=== PATIENT | male | born 1990 | race American Indian/Alaskan Native ===

== ENCOUNTER 2018-11-04 14:39 | Emergency (ER) | payer MEDICAID, OTHER ==
--- NOTE | 2018-11-04 15:26 | ED PDOC ---
Arrival/HPI - General Time Seen by Provider: 11/04/18 14:41 Historian: Patient - History of Present Illness Narrative History of Present Illness (Text): 28 year old male with no significant past medical history presents to the emergency department complaining of right wrist pain s/p injury one hour prior to arrival. Patient was singing and dancing in the shower when he slipped and fell on to his right wrist. Denies any head strike or LOC. Currently complaining of pain to the right elbow, right forearm, right wrist, and right hand. Patient has not taken any medication for pain. During the fall he sustained a small abrasion to the right dorsal fifth digit. No active bleeding. Denies numbness, weakness, paresthesias, pain elsewhere, headache, dizziness, neck pain or stiffness, back pain, abdominal pain, nausea, vomiting, vision changes, or any other associated symptoms. Past Medical History - Tetanus Immunization Tetanus Immunization: Unknown - Past Medical History Past Medical History: No Previous - Psychiatric Hx Anxiety: No Hx Depression: No - Past Surgical History Past Surgical History: No Previous - Suicidal Assessment Feels Threatened In Home Enviroment: No Family/Social History Smoking Status: Current Some Days Smoker Allergies/Home Meds Allergies/Adverse Reactions: Allergies grape Allergy (Verified 11/04/18 15:26) RASH ibuprofen [From Motrin] Allergy (Verified 11/04/18 15:26) RASH Penicillins Allergy (Verified 11/04/18 15:26) RASH Physical Exam Vital Signs Reviewed: Yes Temperature: Afebrile Blood Pressure: Normal Pulse: Regular Respiratory Rate: Normal Appearance: Positive for: Well-Appearing, Non-Toxic, Comfortable Pain Distress: None Mental Status: Positive for: Alert and Oriented X 3 Medical Decision Making ED Course and Treatment: 17:44 Xrays negative for acute fracture or dislocation. Pt placed in right thumb spica braced and educated on the possibility of occult fracture. Advised orthopedic and PMD followup. - RAD Interpretation Narrative RAD Interpretations (Text): 11/04/18 17:38 Right Hand XR: FINDINGS: BONES: Normal. No fracture. JOINTS: Normal. No osteoarthritic changes. SOFT TISSUES: Normal. OTHER FINDINGS: None. IMPRESSION: Normal right hand radiographs. Right Forearm XR: FINDINGS: BONES: No fracture or destructive lesion. JOINT SPACES: Unremarkable. OTHER FINDINGS: None. IMPRESSION: Unremarkable radiographs of the right forearm. Right Elbow XR: FINDINGS: BONES: Normal. No fracture. JOINTS: Normal. No osteoarthritis. SOFT TISSUES: Focal soft tissue swelling adjacent to JOINT EFFUSION: None. OTHER FINDINGS: None. IMPRESSION: Unremarkable radiographs of the right elbow. 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 Disposition/Present on Arrival - Present on Arrival Any Indicators Present on Arrival: No History of DVT/PE: No History of Uncontrolled Diabetes: No Urinary Catheter: No History Surgical Site Infection Following: None - Disposition Have Diagnosis and Disposition been Completed?: Yes Diagnosis: Right wrist sprain Disposition: HOME/ ROUTINE Disposition Time: 17:30 Patient Plan: Discharge Condition: IMPROVED Discharge Instructions (ExitCare): Wrist Sprain (DC), Wrist Fracture (DC) Additional Instructions: Tylenol as needed for pain Ice injured arm hourly 15 minutes at a time Keep injured arm elevated Keep brace on and dry until orthopedic followup Return to ER with any new/worsening symptoms Referrals: [facility] [place] - Follow up with primary Orth[facility] at [Outside] - Follow up with primary Emeli Montaño MD [Staff Provider] - Follow up with primary Ruthann Diaz MD [Medical Doctor] - Follow up with primary Forms: [facility] (Malay), WORK NOTE
[2018-11-04 15:31] VITALS: RESP 18; TEMP 98.3; O2SAT 100
[2018-11-04 15:38] VITALS: BMI 22.2
--- NOTE | 2018-11-04 17:39 | RAD ---
PROCEDURE: Right Hand Radiographs. HISTORY: trauma today, dorsal 2nd and 3rd MC pain COMPARISON: None. TECHNIQUE: 3 views obtained. FINDINGS: BONES: Normal. No fracture. JOINTS: Normal. No osteoarthritic changes. SOFT TISSUES: Normal. OTHER FINDINGS: None. IMPRESSION: Normal right hand radiographs.
--- NOTE | 2018-11-04 17:40 | RAD ---
Date of service: 11/04/2018 PROCEDURE: Radiographs of the right elbow. HISTORY: trauma today, posterior pain COMPARISON: No prior. TECHNIQUE: 3 views obtained. FINDINGS: BONES: Normal. No fracture. JOINTS: Normal. No osteoarthritis. SOFT TISSUES: Focal soft tissue swelling adjacent to JOINT EFFUSION: None. OTHER FINDINGS: None. IMPRESSION: Unremarkable radiographs of the right elbow.
--- NOTE | 2018-11-04 17:40 | RAD ---
PROCEDURE: Radiographs of the Right Forearm HISTORY: trauma today, lateral pain COMPARISON: None available. TECHNIQUE: Frontal and lateral views obtained. 2 views obtained. FINDINGS: BONES: No fracture or destructive lesion. JOINT SPACES: Unremarkable. OTHER FINDINGS: None. IMPRESSION: Unremarkable radiographs of the right forearm.
[2018-11-04] MEDS ORDERED: TDAP Vaccine 0.5 mL Syr IM ONE (17:55)
[2018-11-04 18:02] VITALS: BP 122/74; PULSE 65
--- NOTE | 2018-11-04 18:33 | RAD ---
Date of service: 11/04/2018 PROCEDURE: Right Wrist Radiographs. HISTORY: trauma today, lateral pain COMPARISON: None. TECHNIQUE: 4 views obtained. FINDINGS: BONES: Normal. No fracture. JOINTS: Normal. No dislocation. SOFT TISSUES: Normal. OTHER FINDINGS: None. IMPRESSION: Normal right wrist radiographs.
== END 2018-11-04 18:12 | disposition home or self-care (01) ==
LOC: ED 14:39
DX: S63.501A Unspecified sprain of right wrist, initial encounter (principal); W18.2XXA Fall in (into) shower or empty bathtub, initial encounter; Y93.E1 Activity, personal bathing and showering; Y93.41 Activity, dancing; Z23 Encounter for immunization